=== PATIENT | male | born 1990 | race American Indian/Alaskan Native ===

== ENCOUNTER 2018-05-23 21:48 | Emergency (ER) | payer BC ==
[2018-05-23 21:51] VITALS: BMI 29.0
[2018-05-23 22:02] VITALS: TEMP 98.4
[2018-05-23] MEDS ORDERED: Sodium Chloride 0.9% 1,000 ML IV STA (22:35)
--- NOTE | 2018-05-23 22:46 | ED PDOC ---
Arrival/HPI - General Chief Complaint: GI Problem Time Seen by Provider: 05/23/18 21:49 Historian: Patient - History of Present Illness Narrative History of Present Illness (Text): 05/23/18 22:43 Symptom Onset: Gradual Symptom Course: Unchanged Activities at Onset: Light Context: Home Past Medical History - Provider Review Nursing Documentation Reviewed: Yes - Infectious Disease Hx of Infectious Diseases: None - Tetanus Immunization Tetanus Immunization: Unknown - Past Medical History Past Medical History: No Previous - Psychiatric Hx Substance Use: No - Surgical History Other/Comment: MRSA, right thigh - Anesthesia Hx Anesthesia: No - Suicidal Assessment Feels Threatened In Home Enviroment: No Family/Social History - Physician Review Nursing Documentation Reviewed: Yes Family/Social History: No Known Family HX Hx Alcohol Use: No Hx Substance Use: No Hx Substance Use Treatment: No Allergies/Home Meds Allergies/Adverse Reactions: Allergies terbinafine [From Lamisil] Allergy (Verified 05/23/18 22:22) NAUSEA eggplant Allergy (Uncoded 05/23/18 22:22) ANAPHYLAXIS Review of Systems - Physician Review All systems were reviewed & negative as marked: Yes - Review of Systems Constitutional: absent: Fevers, Other (Chills) Respiratory: absent: SOB Cardiovascular: absent: Chest Pain Gastrointestinal: Constipation, Hematochezia. absent: Abdominal Pain, Diarrhea, Nausea, Vomiting Genitourinary Male: absent: Dysuria, Frequency, Hematuria Musculoskeletal: absent: Back Pain, Neck Pain Neurological: absent: Headache, Dizziness Physical Exam Vital Signs Reviewed: Yes Vital Signs Temp Pulse Resp BP Pulse Ox 05/23/18 21:50 98.4 F 95 H 16 104/69 100 Temperature: Afebrile Blood Pressure: Normal Pulse: Tachycardic Respiratory Rate: Normal Appearance: Positive for: Well-Appearing, Non-Toxic, Comfortable Pain Distress: None Mental Status: Positive for: Alert and Oriented X 3 - Systems Exam Head: Present: Atraumatic, Normocephalic Pupils: Present: PERRL Extroacular Muscles: Present: EOMI Conjunctiva: Present: Normal Mouth: Present: Moist Mucous Membranes Neck: Present: Normal Range of Motion Respiratory/Chest: Present: Clear to Auscultation, Good Air Exchange. No: Respiratory Distress, Accessory Muscle Use Cardiovascular: Present: Tachycardic. No: Murmurs Abdomen: No: Tenderness, Distention, Peritoneal Signs Back: Present: Normal Inspection Upper Extremity: Present: Normal Inspection. No: Cyanosis, Edema Lower Extremity: Present: Normal Inspection. No: Edema Neurological: Present: GCS=15, CN II-XII Intact, Speech Normal Skin: Present: Warm, Dry, Normal Color. No: Rashes Psychiatric: Present: Alert, Oriented x 3, Normal Insight, Normal Concentration Medical Decision Making ED Course and Treatment: 05/23/18 22:43 Impression: Differential Diagnosis included but are not limited to: Plan: -- Reassess and disposition Prior Visits: Notes and results from previous visits were reviewed. Patient was last seen in the emergency department on Progress Notes: - Medication Orders Current Medication Orders: Sodium Chloride (Sodium Chloride 0.9%) 1,000 mls @ 1,000 mls/hr IV .Q1H STA Stop: 05/23/18 23:34 Last Admin: 05/23/18 22:40 Dose: 1,000 mls/hr eMAR Start Stop Document 05/23/18 22:40 CNR (Rec: 05/23/18 22:41 CNR [id number]) Intravenous Solution Start Date 05/23/18 Start Time 22:20 End Date 05/23/18 End time 23:20 Total Infusion Time 60 Discontinued Medications Ondansetron HCl (Zofran Inj) 4 mg IVP STAT STA Stop: 05/23/18 22:36 Last Admin: 05/23/18 22:41 Dose: 4 mg IVP Administration Document 05/23/18 22:41 CNR (Rec: 05/23/18 22:41 CNR [id number]) Charges for Administration # of IVP Administrations 1 Disposition/Present on Arrival - Present on Arrival History of DVT/PE: No History of Uncontrolled Diabetes: No Urinary Catheter: No History of Decub. Ulcer: No History Surgical Site Infection Following: None - Disposition Referrals: Jenny Mccain MD [Primary Care Provider] - Follow up with primary
[2018-05-23 22:58] LABS: EOS # 0.1 (0.0-0.7); EOS % 1.5 % (1.5-5.0); GRAN # 6.33 (1.4-6.5); GRAN % 87.6 % (50.0-68.0); HEMOGLOBIN 17.1 g/dL (14.0-18.0); LYMPH # 0.5 (1.2-3.4); LYMPH % 6.9 % (22.0-35.0); MEAN CELL VOLUME 87.9 fl (80.0-105.0); MEAN CORPUSCULAR HEMOGLOBIN 29.6 pg (25.0-35.0); MEAN CORPUSCULAR HGB CONC 33.7 g/dl (31.0-37.0); MEAN PLATELET VOLUME 10.4 fl (7.0-11.0); MONO # 0.3 (0.1-0.6); RBC 5.77 10^6/uL (3.5-6.1); WHITE BLOOD COUNT 7.2 10^3/uL (4.5-11.0)
[2018-05-23 23:06] LABS: ALB/GLOB RATIO 1.3 (1.1-1.8); ALBUMIN 4.9 g/dL (3.0-4.8); ALT/SGPT 31 U/L (7-56); AST/SGOT 40 U/L (17-59); BLOOD UREA NITROGEN 18 mg/dL (7-21); CALCIUM 9.6 mg/dL (8.4-10.5); GFR NON-AFRICAN AMERICAN > 60; LIPASE 25 U/L (23-300)
[2018-05-23 23:45] VITALS: BP 116/82; PULSE 78; RESP 17; O2SAT 99
--- NOTE | 2018-05-24 00:12 | ED PDOC ---
Arrival/HPI - General Chief Complaint: GI Problem Time Seen by Provider: 05/23/18 21:49 Historian: Patient - History of Present Illness Narrative History of Present Illness (Text): 05/23/18 22:35 27 year old male with no significant past medical history, presents to the emergency department complaining of multiple episodes of vomiting and diarrhea after eating [employer] at 2PM. Patient denies any recent travel or being on any recent antibiotics. Patient denies any fever, chills, chest pain, shortness of breath, abdominal pain, urinary symptoms, back pain, neck pain, headache, dizziness, or any other complaints. PMD: Dr. Mccain Time/Duration: Other (7-8 hours ago) Symptom Onset: Gradual Symptom Course: Unchanged Activities at Onset: Light Past Medical History - Provider Review Nursing Documentation Reviewed: Yes - Infectious Disease Hx of Infectious Diseases: None - Tetanus Immunization Tetanus Immunization: Unknown - Past Medical History Past Medical History: No Previous - Psychiatric Hx Substance Use: No - Surgical History Other/Comment: MRSA, right thigh - Anesthesia Hx Anesthesia: No - Suicidal Assessment Feels Threatened In Home Enviroment: No Family/Social History - Physician Review Nursing Documentation Reviewed: Yes Family/Social History: No Known Family HX Smoking Status: Never Smoked Hx Alcohol Use: No Hx Substance Use: No Hx Substance Use Treatment: No Allergies/Home Meds Allergies/Adverse Reactions: Allergies terbinafine [From Lamisil] Allergy (Verified 05/23/18 22:22) NAUSEA eggplant Allergy (Uncoded 05/23/18 22:22) ANAPHYLAXIS Review of Systems - Physician Review All systems were reviewed & negative as marked: Yes - Review of Systems Constitutional: absent: Fevers, Other (Chills) Respiratory: absent: SOB Cardiovascular: absent: Chest Pain Gastrointestinal: Diarrhea, Vomiting. absent: Abdominal Pain Genitourinary Male: absent: Dysuria, Frequency, Hematuria Musculoskeletal: absent: Back Pain, Neck Pain Neurological: absent: Headache, Dizziness Physical Exam Vital Signs Reviewed: Yes Vital Signs Temp Pulse Resp BP Pulse Ox 05/23/18 23:38 78 17 116/82 99 05/23/18 21:50 98.4 F 95 H 16 104/69 100 Temperature: Afebrile Blood Pressure: Normal Pulse: Regular Respiratory Rate: Normal Appearance: Positive for: Well-Appearing, Non-Toxic, Comfortable Pain Distress: None Mental Status: Positive for: Alert and Oriented X 3 - Systems Exam Head: Present: Atraumatic, Normocephalic Pupils: Present: PERRL Extroacular Muscles: Present: EOMI Conjunctiva: Present: Normal Mouth: Present: Dry Neck: Present: Normal Range of Motion Respiratory/Chest: Present: Clear to Auscultation, Good Air Exchange. No: Respiratory Distress, Accessory Muscle Use Cardiovascular: Present: Regular Rate and Rhythm, Normal S1, S2. No: Murmurs Abdomen: No: Tenderness, Distention, Peritoneal Signs Back: Present: Normal Inspection Neurological: Present: GCS=15, CN II-XII Intact, Speech Normal Skin: Present: Warm, Dry, Normal Color. No: Rashes Psychiatric: Present: Alert, Oriented x 3, Normal Insight, Normal Concentration Medical Decision Making ED Course and Treatment: 05/23/18 22:35 Impression: 27 year old male presents complaining of multiple episodes of vomiting and diarrhea after eating [employer] 7-8 hours ago. Plan: -- Zofran, IV Fluids -- Reassess and disposition Progress Notes: 05/23/18 23:38 On re-evaluation, patient feels better, reports no nausea, abdominal pain, or diarrhea, is laying in bed comfortably and is in no acute distress. He is tolerating po fluids. I have discussed the plan with the patient, who expresses understanding. Patient in agreement with plan to be discharged home. Patient is stable for discharge. Patient was instructed to follow up with physician or return if symptoms worsen or new concerning symptoms arise. - Lab Interpretations Lab Results: 05/23/18 22:45 05/23/18 22:35 Lab Results 05/23/18 22:45: WBC 7.2, RBC 5.77, Hgb 17.1, Hct 50.7, MCV 87.9, MCH 29.6, MCHC 33.7, RDW 13.0, Plt Count 203, MPV 10.4, Gran % 87.6 H, Lymph % (Auto) 6.9 L, [place] % (Auto) 4.0, Eos % (Auto) 1.5, Baso % (Auto) 0.0, Gran # 6.33, Lymph # (Auto) 0.5 L, [place] # (Auto) 0.3, Eos # (Auto) 0.1, Baso # (Auto) 0.00 05/23/18 22:35: Sodium 142, Potassium 3.9, Chloride 104, Carbon Dioxide 26, Anion Gap 15, BUN 18, Creatinine 1.1, Est GFR ( Amer) > 60, Est GFR (Non- Af Amer) > 60, Random Glucose 111 H, Calcium 9.6, Total Bilirubin 1.0, AST 40, ALT 31, Alkaline Phosphatase 85, Total Protein 8.7 H, Albumin 4.9 H, Globulin 3.8, Albumin/Globulin Ratio 1.3, Lipase 25 - Medication Orders Current Medication Orders: Discontinued Medications Sodium Chloride (Sodium Chloride 0.9%) 1,000 mls @ 1,000 mls/hr IV .Q1H STA Stop: 05/23/18 23:34 Last Admin: 05/23/18 22:40 Dose: 1,000 mls/hr eMAR Start Stop Document 05/23/18 22:40 CNR (Rec: 05/23/18 22:41 CNR [id number]) Intravenous Solution Start Date 05/23/18 Start Time 22:20 End Date 05/23/18 End time 23:20 Total Infusion Time 60 Ondansetron HCl (Zofran Inj) 4 mg IVP STAT STA Stop: 05/23/18 22:36 Last Admin: 05/23/18 22:41 Dose: 4 mg IVP Administration Document 05/23/18 22:41 CNR (Rec: 05/23/18 22:41 CNR [id number]) Charges for Administration # of IVP Administrations 1 - PA / BRILLIANDEER LOOPER / Resident Statement MD/DO has reviewed & agrees with the documentation as recorded. - Scribe Statement The provider has reviewed the documentation as recorded by the Taylor Camacho Provider Scribe Attestation: All medical record entries made by the Taylor were at my direction and personally dictated by me. I have reviewed the chart and agree that the record accurately reflects my personal performance of the history, physical exam, medical decision making, and the department course for this patient. I have also personally directed, reviewed, and agree with the discharge instructions and disposition. Disposition/Present on Arrival - Present on Arrival Any Indicators Present on Arrival: No History of DVT/PE: No History of Uncontrolled Diabetes: No Urinary Catheter: No History of Decub. Ulcer: No History Surgical Site Infection Following: None - Disposition Have Diagnosis and Disposition been Completed?: Yes Diagnosis: Acute gastroenteritis Disposition: HOME/ ROUTINE Disposition Time: 23:38 Patient Plan: Discharge Condition: STABLE Discharge Instructions (ExitCare): Gastroenteritis (DC), Gastroenteritis (GEN) Additional Instructions: Thank you for letting us take care of you today. You were treated for acute gastroenteritis. The emergency medical care you received today was directed at your acute symptoms. If you were prescribed any medication, please fill it and take as directed. It may take several days for your symptoms to resolve. Return to the Emergency Department if your symptoms worsen, do not improve, or if you have any other problems. Please contact your doctor in 2 days for re-evaluation and follow up. Bring any paperwork you were given at discharge with you along with any medications you are taking to your follow up visit. Our treatment cannot replace ongoing medical care by a primary care provider (PCP) outside of the emergency department. Thank you for allowing the [facility] team to be part of your care today. Prescriptions: Ondansetron ODT [Zofran ODT] 4 mg PO DAILY PRN #20 odt PRN Reason: Nausea/Vomiting Referrals: Jenny Mccain MD [Primary Care Provider] - Follow up with primary Forms: [employer] (Montenegrin), WORK NOTE
== END 2018-05-23 23:38 | disposition home or self-care (01) ==
LOC: ED 21:48
DX: K52.9 Noninfective gastroenteritis and colitis, unspecified (principal)
CPT/HCPCS: 80053; 83690; 85025; 96361; 96374; 99283; J2405; J7030

== ENCOUNTER 2018-05-31 19:30 | Emergency (ER) | payer BC ==
[2018-05-31 19:30] VITALS: BMI 29.0
--- NOTE | 2018-05-31 19:57 | ED PDOC ---
Arrival/HPI - General Chief Complaint: GI Problem Time Seen by Provider: 05/31/18 19:35 Historian: Patient - History of Present Illness Narrative History of Present Illness (Text): 05/31/18 20:03 A 27 year old male, whose past medical history includes childhood asthma, presents to the emergency department for concerns for dark stool. Patient reports he had a colonoscopy performed yesterday, 05/30/[address] Thomson. States he was instructed to be seen in the ER if he had dark stool. Patient was uncertain if he had dark stool, as he took a photo with his phone, revealing only regular brown stool. Patient denies any abdominal pain, back pain, or any other complaints at this time. PMD: Dr. Mccain GI: Dr. Thomson 05/31/18 20:41 Past Medical History - Provider Review Nursing Documentation Reviewed: Yes - Infectious Disease Hx of Infectious Diseases: None - Tetanus Immunization Tetanus Immunization: Unknown - Past Medical History Past Medical History: No Previous - Integumentary Hx Dermatological Disorder: Yes Hx Eczema: Yes - Psychiatric Hx Substance Use: No - Surgical History Other/Comment: MRSA, right thigh - Anesthesia Hx Anesthesia: No - Suicidal Assessment Feels Threatened In Home Enviroment: No Family/Social History - Physician Review Nursing Documentation Reviewed: Yes Family/Social History: No Known Family HX Smoking Status: Never Smoked Hx Alcohol Use: No Hx Substance Use: No Hx Substance Use Treatment: No Allergies/Home Meds Allergies/Adverse Reactions: Allergies cat dander Allergy (Verified 05/31/18 19:51) ITCHING shrimp Allergy (Verified 05/31/18 19:51) ANAPHYLAXIS terbinafine [From Lamisil] Allergy (Verified 05/23/18 22:22) NAUSEA eggplant Allergy (Uncoded 05/23/18 22:22) ANAPHYLAXIS Home Medications: Home Meds Medication Instructions Recorded Confirmed No Known Home Med 05/31/18 05/31/18 Review of Systems - Physician Review All systems were reviewed & negative as marked: Yes - Review of Systems Constitutional: absent: Fatigue, Weight Change, Fevers Eyes: absent: Vision Changes, Photophobia, Eye Pain ENT: absent: Hearing Changes, Tinnitus, TMJ Pain Respiratory: absent: SOB, Cough, Sputum Cardiovascular: absent: Chest Pain, Palpitations Gastrointestinal: absent: Abdominal Pain, Stool Changes, Constipation, Diarrhea, Nausea, Vomiting, Appetite Changes, Hematochezia, Hematemesis, Anorexia, Food Intolerance Genitourinary Male: absent: Dysuria, Frequency, Hematuria Musculoskeletal: absent: Back Pain Skin: absent: Rash, Pruritis Neurological: absent: Headache, Dizziness Endocrine: absent: Diaphoresis, Polyuria Hemo/Lymphatic: absent: Adenopathy, Easy Bleeding Psychiatric: absent: Anxiety, Depression Physical Exam Blood Pressure: Normal Respiratory Rate: Normal Appearance: Positive for: Well-Appearing, Non-Toxic, Comfortable Pain Distress: None Mental Status: Positive for: Alert and Oriented X 3 - Systems Exam Head: Present: Atraumatic, Normocephalic Pupils: Present: PERRL Extroacular Muscles: Present: EOMI Conjunctiva: Present: Normal Ears: Present: Normal, NORMAL TM Mouth: Present: Moist Mucous Membranes Pharnyx: Present: Normal. No: ERYTHEMA, EXUDATE Neck: Present: Normal Range of Motion. No: Meningeal Signs Respiratory/Chest: Present: Clear to Auscultation, Good Air Exchange. No: Respiratory Distress, Accessory Muscle Use Cardiovascular: Present: Regular Rate and Rhythm, Normal S1, S2. No: Murmurs Abdomen: Present: Normal Bowel Sounds. No: Tenderness, Distention, Peritoneal Signs, Rebound, Guarding, McBurney's Point Tender, Rovsing's Sign Present, Hernias, Mass/Organomegaly, Scars Back: Present: Normal Inspection. No: CVA Tenderness Upper Extremity: Present: Normal Inspection. No: Cyanosis, Edema Lower Extremity: Present: Normal Inspection. No: Edema Neurological: Present: GCS=15, CN II-XII Intact, Speech Normal Skin: Present: Warm, Dry, Normal Color. No: Rashes Psychiatric: Present: Alert, Oriented x 3, Normal Insight, Normal Concentration Medical Decision Making ED Course and Treatment: 05/31/18 20:06 Impression: 27 year old male with concerns for dark stool. On visualization of pictured stool sample: noted to be brown stool. Pt denies any polyp removal. No new medications or NSAIDs taken. No hx of stomach ulcers. Non-ttp on exam, no pallor, sob or weakness. Normal neuro exam. No complaints. No N/v. Likely worried well, but will seek CBC to looks at blood counts post procedure. Plan: -- Labs -- Reassess and disposition Prior Visits: Notes and results from previous visits were reviewed. Patient was last seen here in the emergency department on 05/23/2018 for diarrhea. Patient was discharged home. Progress Notes: 05/31/18 20:43 Appreciate consult w/ Dr. Mcfadden (covering for Dr. Thomson)- pending CBC, if largely unremarkable may be able to go home. 05/31/18 20:49 CBC unremarkable, H%H within range abd remains non-ttp and without complaints. clear for d/c home w/ f/u and return indications- pt agreeable to plan. 05/31/18 21:27 Chem unremarkable - Scribe Statement The provider has reviewed the documentation as recorded by the Taylor Daly Provider Scribe Attestation: All medical record entries made by the Scribe were at my direction and personally dictated by me. I have reviewed the chart and agree that the record accurately reflects my personal performance of the history, physical exam, medical decision making, and the department course for this patient. I have also personally directed, reviewed, and agree with the discharge instructions and disposition. Disposition/Present on Arrival - Present on Arrival Any Indicators Present on Arrival: No History of DVT/PE: No History of Uncontrolled Diabetes: No Urinary Catheter: No History of Decub. Ulcer: No History Surgical Site Infection Following: None - Disposition Have Diagnosis and Disposition been Completed?: Yes Diagnosis: Worried well, Stool discoloration Disposition: HOME/ ROUTINE Disposition Time: 20:48 Patient Problems: Current Active Problems Problem Status Onset Worried well Acute Stool discoloration Acute Condition: GOOD Additional Instructions: MERLINE CONKLIN, thank you for letting us take care of you today. Your provider was Kevin Owens and you were treated for STOMACH. The emergency medical care you received today was directed at your acute symptoms. If you were prescribed any medication, please fill it and take as directed. It may take s everal days for your symptoms to resolve. Return to the Emergency Department if your symptoms worsen, do not improve, or if you have any other problems. Please contact your doctor or call one of the physicians/clinics you have been referred to that are listed on the Patient Visit Information form that is included in your discharge packet. Bring any paperwork you were given at discharge with you along with any medications you are taking to your follow up visit. Our treatment cannot replace ongoing medical care by a primary care provider outside of the emergency department. Thank you for allowing the [facility] team to be part of your care today. If you had an X-Ray or CT scan: A Radiologist will review the ED reading if any change in treatment is needed we will contact you. If you had a blood, urine, or wound culture: It will take several days for the results, if any change in treatment is needed we will contact you. If you had an STI test: It will take 48 hours for the results. Please call after 1 week if you have not heard back. Referrals: Jenny Mccain MD [Primary Care Provider] - Follow up with primary Jerome Thomson MD [Medical Doctor] - Follow up with primary Forms: [employer] (Irish)
[2018-05-31 20:15] VITALS: TEMP 98.5
[2018-05-31 20:45] LABS: BASO # 0.02 K/mm3 (0.0-2.0); BASO % 0.3 % (0.0-3.0); EOS # 0.5 (0.0-0.7); EOS % 7.3 % (1.5-5.0); GRAN # 3.57 (1.4-6.5); GRAN % 51.4 % (50.0-68.0); HEMOGLOBIN 15.1 g/dL (14.0-18.0); LYMPH # 2.5 (1.2-3.4); LYMPH % 35.4 % (22.0-35.0); MEAN CELL VOLUME 87.6 fl (80.0-105.0); MEAN CORPUSCULAR HEMOGLOBIN 29.3 pg (25.0-35.0); MEAN CORPUSCULAR HGB CONC 33.5 g/dl (31.0-37.0); MEAN PLATELET VOLUME 9.5 fl (7.0-11.0); MONO # 0.4 (0.1-0.6); MONO % 5.6 % (1.0-6.0); RBC 5.15 10^6/uL (3.5-6.1); RED CELL DISTRIBUTION WIDTH 12.6 % (11.5-14.5)
[2018-05-31 20:51] LABS: ALB/GLOB RATIO 1.3 (1.1-1.8); ALBUMIN 4.3 g/dL (3.0-4.8); ALT/SGPT 44 U/L (7-56); AST/SGOT 41 U/L (17-59); BLOOD UREA NITROGEN 13 mg/dL (7-21); CALCIUM 9.3 mg/dL (8.4-10.5); GFR NON-AFRICAN AMERICAN > 60
[2018-05-31 22:06] VITALS: BP 128/70; PULSE 60; RESP 18; O2SAT 99
== END 2018-05-31 21:30 | disposition home or self-care (01) ==
LOC: ED 19:30
DX: R19.5 Other fecal abnormalities (principal); Z71.1 Person with feared health complaint in whom no diagnosis is made

== ENCOUNTER 2018-06-19 18:31 | Outpatient (CLI) | payer BC | END 2018-06-19 18:32 | disposition home or self-care (01) | LOC: RAD 18:31 ==